=== PATIENT | male | born 1980 | race Caucasian/White ===

== ENCOUNTER 2024-03-06 21:00 | Observation (INO) | payer SELFPAY ==
[2024-03-06 23:11] LABS: HEMATOCRIT 41.5 % (35.4-49); HEMOGLOBIN 13.7 G/dL (11.7-16.9); MCH 28.8 pg (25.7-33.7); MEAN CELL VOLUME 87.2 fl (80-96); MEAN PLT VOLUME 8.7 fl (7.5-11.1); PLATELET COUNT 244.5 10^3/uL (134-434); RBC 4.76 10^6/uL (4.00-5.60); RDW 14.9 % (11.9-15.9); WHITE BLOOD COUNT 9.1 10^3/uL (4.0-10.8)
[2024-03-06] MEDS ORDERED: morphine SULFATE 4 MG/ML VIAL ONE (23:11)
[2024-03-06 23:12] LABS: INR 0.94 (0.83-1.09); PROTHROMBIN TIME (PATIENT) 10.7 SEC (9.7-13.0)
[2024-03-06 23:14] LABS: ACTIVATED PTT 31.1 SECONDS (25.2-36.5)
[2024-03-06 23:23] LABS: ALBUMIN 4.2 g/dl (3.4-5.0); BILIRUBIN,TOTAL 0.4 mg/dl (0.2-1); CALCIUM 9.5 mg/dl (8.5-10.1); CREATININE 0.8 mg/dl (0.6-1.3); MAGNESIUM 1.9 mg/dL (1.8-2.4); PHOSPHOROUS 3.6 (2.5-4.9); POTASSIUM 3.9 mmol/L (3.5-5.1)
[2024-03-06] MEDS: morphine CARPU-JECT 4 MG/1 ML DISP.SYRIN IVPUSH ONE (23:27)
[2024-03-07 00:06] LABS: N-TERMINAL BNP 28.4 pg/ml (5-125)
[2024-03-07] MEDS: RIVAROXABAN 20 MG TABLET PO STA (01:16)
[2024-03-07] MEDS ORDERED: LORazepam 2 MG TABLET PO PRN (01:25)
[2024-03-07] MEDS: FUROSEMIDE 40 MG TABLET (FP) PO SCH ×2 (01:36→05:05)
[2024-03-07] MEDS: CLOPIDOGREL BISULFATE 75 MG TABLET (FP) PO SCH (01:36)
[2024-03-07] MEDS: METOPROLOL TARTRATE 50 MG TABLET (FP) PO SCH (01:36)
[2024-03-07] MEDS: DIVALPROEX SODIUM 500 MG TABLET E.C. PO SCH (03:12)
[2024-03-07] MEDS ORDERED: ACETAMINOPHEN 325 MG TABLET (FP) PO PRN (03:18)
[2024-03-07] MEDS ORDERED: DOCUSATE SODIUM 100 MG CAPSULE (FP) PO PRN (03:18)
[2024-03-07 03:48] VITALS: BMI 49.1
[2024-03-07] MEDS: morphine SULFATE 4 MG/ML VIAL IVPUSH ONE (04:07)
[2024-03-07] MEDS: DIVALPROEX SODIUM 250 MG TABLET E.C. PO SCH (04:09)
[2024-03-07] MEDS: diphenhydrAMINE HCL 25 MG CAPSULE (FP) PO ONE (05:04)
[2024-03-07] MEDS: ZONISAMIDE 25 MG CAPSULE PO ONE (05:05)
[2024-03-07 05:25] LABS: BLOOD UREA NITROGEN 15.7 mg/dL (7-18); POTASSIUM 5.2 mmol/L (3.5-5.1)
[2024-03-07] MEDS: LORazepam 1 MG TABLET PO PRN (06:09)
[2024-03-07] MEDS ORDERED: ACETAMINOPHEN 500 MG TABLET (FP) PO PRN (07:33)
[2024-03-07] MEDS ORDERED: LISINOPRIL 10 MG TABLET PO SCH (10:00)
[2024-03-07] MEDS ORDERED: ZONISAMIDE 100 MG CAPSULE PO SCH (10:00)
[2024-03-07] MEDS: ATORVASTATIN CA 40 MG TABLET (FP) PO SCH (10:06)
[2024-03-07] MEDS: ESCITALOPRAM OXALATE 20 MG TABLET PO SCH (10:10)
[2024-03-07] MEDS: LISINOPRIL 10 MG TABLET PO SCH (10:10)
[2024-03-07] MEDS: RIVAROXABAN 20 MG TABLET PO SCH (18:46)
[2024-03-07 22:08] VITALS: BP 102/66; PULSE 92; RESP 17; TEMP 98.6
[2024-03-08] MEDS ORDERED: ZONISAMIDE 25 MG CAPSULE PO SCH (10:00)
== END 2024-03-07 22:45 | disposition left against medical advice (07) ==
LOC: FER 21:00 → FM/S 03-07 01:07
PROVIDERS: ADMIT Internal Medicine; ATTEND Internal Medicine
PROC: 3E033NZ Introduction of Analgesics, Hypnotics, Sedatives into Peripheral Vein, Percutaneous Approach (ICD-10-PCS; principal; 2024-03-07)
DX: R07.9 Chest pain, unspecified (principal); I11.0 Hypertensive heart disease with heart failure; E66.01 Morbid (severe) obesity due to excess calories; I25.2 Old myocardial infarction; I48.91 Unspecified atrial fibrillation; D68.51 Activated protein C resistance; R56.9 Unspecified convulsions; D68.59 Other primary thrombophilia; E78.5 Hyperlipidemia, unspecified; Z79.01 Long term (current) use of anticoagulants; Z86.711 Personal history of pulmonary embolism; Z91.148 Patient's other noncompliance with medication regimen for other reason; F43.10 Post-traumatic stress disorder, unspecified; Z88.8 Allergy status to other drugs, medicaments and biological substances; F32.A Depression, unspecified
CPT/HCPCS: 36415; 71045-TC-FY; 80048; 80053; 82550; 83605; 83735; 83880; 84100; 84484; 85027; 85379; 85610; 85730; 93005; 93306-TC; 99285-25; G0378